=== PATIENT | female | born 1980 | race Caucasian/White ===

== ENCOUNTER 2017-02-27 10:19 | Day surgery (SDC) | payer OTHER ==
[~2017-02-27] VITALS: Ht 165.1 cm; Wt 72.8 kg
[~2017-02-27 10:19] MED LIST: 00186-0370-20 IH; ABILIFY2 MG PO; ALBUTEROL0.83 MG/ML IH; BUSPIRONE HCL15 MG PO; BUSPIRONE15 MG PO; CARAFATE 1GM1 G PO; CELEXA; CELEXA 20MG20 MG/TA1 PO; CEPACOL SORE TH1 LO8; CITALOPRAM20 MG PO; EPIPEN 2-PAK1 MG/ML IM; KLONOPIN 0.5MG0.5 MG PO; LORTAB 7.5/5001 TAB PO; MELATONIN PO; MELATONIN5 MG; MOTRIN800 MG PO; NORCO 325 MG-51 TAB PO; PEPCID 20MG TAB20 MG PO; PERCOCET 325 MG1 TA2 PO; PHENERGAN 25 TA25 MG PO; PREDNISONE20 MG PO; PROZAC 20MG20 MG PO; PROZAC40 MG PO; REGLAN 10MG10 MG/TAB PO; REQUIP1 MG PO; TYLENOL EXTRA500 M1 PO; VICODIN 5/5001 UDTAB PO; WELLBUTRIN 100100 MG; WELLBUTRIN SR150 M1 PO; XANAX0.25 MG PO; ZITHROMAX Z PA250 MG PO; ZOFRAN 4MG T4 MG/TAB PO
[2017-02-27 10:57] VITALS: BP 124/98; PULSE 92; TEMP 98.7
[2017-02-27] MEDS ORDERED: NEXIUM 20MG20 MG PO (11:09)
[2017-02-27] MEDS ORDERED: BUSPAR10 MG PO (11:11)
[2017-02-27] MEDS ORDERED: ORTHO TRI-CYCLE1 TAB PO (11:11)
[2017-02-27 12:02] VITALS: BP 123/94; PULSE 88; TEMP 97.4
[2017-02-27 12:15] VITALS: BP 129/96; PULSE 96
[2017-02-27 13:31] VITALS: BP 122/71; PULSE 87
== END 2017-02-27 13:05 | disposition home or self-care (01) ==
LOC: SDCO 10:19
DX: K62.1 Rectal polyp (principal); K59.00 Constipation, unspecified; K58.9 Irritable bowel syndrome, unspecified; K21.0 Gastro-esophageal reflux disease with esophagitis; F41.9 Anxiety disorder, unspecified; F32.9 Major depressive disorder, single episode, unspecified; F17.210 Nicotine dependence, cigarettes, uncomplicated; Z90.49 Acquired absence of other specified parts of digestive tract
CPT/HCPCS: OP; J2250; J2405; J3010

== ENCOUNTER 2017-05-25 12:31 | Emergency (ER) | payer OTHER ==
[~2017-05-25] VITALS: Ht 165.1 cm; Wt 70.0 kg
[~2017-05-25 12:31] MED LIST changes: +BUSPAR10 MG PO; +NEXIUM 20MG20 MG PO; +ORTHO TRI-CYCLE1 TAB PO
[2017-05-25 12:33] VITALS: BP 171/91; TEMP 97.4
[2017-05-25] MEDS ORDERED: MONONESSA 35 MC1 TA1 PO (14:13)
[2017-05-25] MEDS ORDERED: NORCO 325 MG-51 TAB PO (14:24)
[2017-05-25 14:29] VITALS: PULSE 85
== END 2017-05-25 14:29 | disposition home or self-care (01) ==
LOC: COL.ER 12:31
DX: S20.211A Contusion of right front wall of thorax, initial encounter (principal); F41.9 Anxiety disorder, unspecified; K58.9 Irritable bowel syndrome, unspecified; F17.210 Nicotine dependence, cigarettes, uncomplicated; W00.0XXA Fall on same level due to ice and snow, initial encounter
CPT/HCPCS: A9284

== ENCOUNTER 2017-05-27 17:24 | Outpatient (CLI) | payer OTHER ==
[~2017-05-27] VITALS: Ht 165.1 cm; Wt 70.4 kg
[~2017-05-27 17:24] MED LIST changes: +MONONESSA 35 MC1 TA1 PO
== END 2017-05-27 18:14 | disposition home or self-care (01) ==
LOC: EUO 17:24
DX: R35.0 Frequency of micturition (principal)

== ENCOUNTER 2018-10-11 16:29 | Emergency (ER) | payer OTHER ==
[~2018-10-11] VITALS: Ht 165.1 cm; Wt 79.5 kg
[2018-10-11 16:52] VITALS: BP 122/85; TEMP 97.8
[2018-10-11] MEDS ORDERED: PREDNISONE20 MG PO (17:21)
[2018-10-11] MEDS ORDERED: DOXYCYCLINE 10100 MG PO (17:21)
[2018-10-11 17:30] VITALS: PULSE 83
== END 2018-10-11 17:35 | disposition home or self-care (01) ==
LOC: COL.ER 16:29
DX: S60.562A Insect bite (nonvenomous) of left hand, initial encounter (principal); I10 Essential (primary) hypertension; F32.9 Major depressive disorder, single episode, unspecified; F41.9 Anxiety disorder, unspecified; Z90.89 Acquired absence of other organs; W57.XXXA Bitten or stung by nonvenomous insect and other nonvenomous arthropods, initial encounter
CPT/HCPCS: J7512

== ENCOUNTER 2020-02-02 03:57 | Inpatient (IN) | payer OTHER ==
[~2020-02-02] VITALS: Ht 165.1 cm; Wt 73.2 kg
[2020-02-02] VITALS (11 sets, daily range): BP systolic 82–117; BP diastolic 53–69; PULSE 71–111; TEMP 97.5–99.4
[~2020-02-02 03:57] MED LIST changes: +DOXYCYCLINE 10100 MG PO
[2020-02-02 04:43] LABS: COLLECTION METHOD CLEAN CATCH
[2020-02-02 04:52] LABS: PH 7 (5-8); SQUAMOUS EPITHELIAL 0-2 /hpf; URINE APPEARANCE Clear; URINE BACTERIA None Seen /hpf; URINE BILIRUBIN Negative (NEGATIVE); URINE BLOOD Negative (NEGATIVE); URINE COLOR Yellow; URINE GLUCOSE Negative (NEGATIVE); URINE KETONE Negative (NEGATIVE); URINE LEUKOCYTE ESTERASE Negative (NEGATIVE); URINE NITRATE Negative (NEGATIVE); URINE PROTEIN(semi-quant) Negative (NEGATIVE); URINE RBC None Seen /hpf; URINE UROBILINOGEN Negative (NEGATIVE)
[2020-02-02 04:54] LABS: BASO % 0.3 % (0.0-2.0); EOS # 0.1 (0.0-0.7); EOS % 0.9 % (0-4.0); GRAN # 9.8 (1.4-6.5); GRAN % 83.4 % (42.2-75.2); HEMOGLOBIN 14.3 g/dl (12.5-16.0); LYMPH # 1.1 (1.2-3.4); LYMPH % 9.4 % (20.0-51.0); MEAN CELL VOLUME 94 fl (80.0-100.0); MEAN CORPUSCULAR HEMOGLOBIN 33 pg (27.0-31.0); MEAN CORPUSCULAR HGB CONC 35 g/dl (33.0-37.0); MEAN PLATELET VOLUME 10.4 fl (7.4-10.4); MONO # 0.7 (0.1-0.6); MONO % 5.7 % (1.7-9.3); PLATELET COUNT 243 K/mm3 (130-400); RED BLOOD COUNT 4.35 M/mm3 (4.10-5.30)
[2020-02-02 05:04] LABS: ALBUMIN 4.3 gm/dL (3.5-5.0); BILIRUBIN,TOTAL 0.8 mg/dL (0.0-1.0); C-REACTIVE PROTEIN 4.5 mg/dL (0.0-0.9); CREATININE, serum 0.79 (0.52-1.25); POTASSIUM 3.8 mmol/L (3.4-5.0); TOTAL PROTEIN 7.1 gm/dL (6.4-8.2)
[2020-02-02] MEDS ORDERED: REXULTI2 MG PO (09:01)
[2020-02-02] MEDS ORDERED: AMITRIPTYLINE H25 M1 PO (09:02)
[2020-02-02] MEDS ORDERED: NEURONTIN300 MG/CAP PO (09:03)
[2020-02-02] MEDS ORDERED: TOPROL XL 25MG25 MG PO (09:03)
--- NOTE | 2020-02-02 09:29 | NUR ---
PT ADMITTED FOR SEVERE ABDOMINAL PAIN WHICH GOT WORSE LAST NIGHT AROUND 6PM, HAD BEEN HAVING PAIN SINCE Thursday01/31/2020. PT HAD HYSTERECTOMY ON 01/13/20. BROUGHT TO UNIT FROM ER WHERE SHE HAD LAB WORK, VIVEROS CATHETER PLACED, IV PLACED IN RIGHT AC, ANTIBIOTICS, FLUIDS, AND IV PAIN MEDS WERE ADMINISTERED.BROUGHT TO ROOM 222 BY ER STAFF. PT STRUGGLED TO SLIDE OFF GURNEY TO BED SHE REPORTS MOVEMENT MAKES THE PAIN MUCH WORSE. ALSO LIKES TO LIE FLAT THIS HELPS PAIN NOT BE BAD. DR MALIN IN TO TALK WITH PT AND ABOUT PLAN OF CARE. LR STARTED AT 125ML/HR PER ORDER. ASSESSMENT COMPLETED. PHONED RAMONE IN PACU AT 0856 NOTIFYING HER PT HAS LATEX ALLERGY. PT REPORTING PAIN OF 10/10 AT 0905. 0.25MG DILAUDID GIVEN AT 0910 0930-RATING PAIN 4/10
--- NOTE | 2020-02-02 10:05 | NUR ---
REPORT CALLED TO ANGÉLICA FANG RN, IN OPERATING ROOM
--- NOTE | 2020-02-02 19:00 | NUR ---
CHANGE OF SHIFT REPORT RECEIVED FROM DAY SHIFT NURSE. PATIENT RESTING IN BED WITH NO C/O OR CONCERNS REPORTED DURING REPORT. IVF INFUSING WITH NO PROBLEMS OR CONCERNS.
--- NOTE | 2020-02-02 20:00 | NUR ---
IVF INFUSING WITH NO PROBLEMS, DENIES NAUSEA, CHEST PAIN, SHORTNESS OF BREATH AT THIS TIME. VIVEROS IN PLACE, DRAINING WITH NO PROBLEMS. DENIES ANY NEEDS AT THIS TIME, REFUSING OFFER OF PAIN MEDS AT THIS TIME. TOLERATING PO LIQUIDS WITH NO C/O AT THIS TIME.
[2020-02-03] VITALS (8 sets, daily range): BP systolic 83–116; BP diastolic 46–79; PULSE 63–83; TEMP 97.7–98.3
[2020-02-03 07:04] LABS: MEAN CELL VOLUME 97 fl (80.0-100.0); MEAN CORPUSCULAR HGB CONC 34 g/dl (33.0-37.0); MEAN PLATELET VOLUME 10.4 fl (7.4-10.4); PLATELET COUNT 186 K/mm3 (130-400); RED BLOOD COUNT 3.58 M/mm3 (4.10-5.30); REDCELL DISTRIBUTION WIDTH-CV 12.2 % (11.5-14.5)
[2020-02-03 07:12] LABS: HEMATOCRIT 34.8 % (37.0-47.0); HEMOGLOBIN 11.8 g/dl (12.5-16.0); MEAN CORPUSCULAR HEMOGLOBIN 33 pg (27.0-31.0)
--- NOTE | 2020-02-03 07:15 | NUR ---
CHANGE OF SHIFT REPORT GIVEN TO DAY SHIFT NURSEALFREDO.
[2020-02-03 07:17] LABS: CALCIUM 8.1 mg/dL (8.4-10.2); CREATININE, serum 0.71 (0.52-1.25); MAGNESIUM 1.9 mg/dL (1.6-2.3); PHOSPHOROUS 3.2 mg/dL (2.5-4.5); POTASSIUM 3.9 mmol/L (3.4-5.0)
--- NOTE | 2020-02-03 15:15 | NUR ---
Construction Management Instructor met with patient to discuss discharge planning. Patient lives outside of [place] with her , Cj (ph#[phone]) and sees Dr. Haile for primary care. Patient obtains medications from [facility] with no difficulties. Patient states she works at [employer] but is concerned about her job as she has missed a significant amount of work due to medical issues. Patient does not use any DME and reports independence with ADLS. Patient does not have Advance Directives and is not interested in completing DPOA-HC form at this time. Patient states she plans to return home upon discharge. SW followed up with patient's , Cj later in the afternoon as he is now at bedside. Cj reports no concerns with patient returning home upon discharge. Cj does state that he does not want patient to be discharged too soon even though patient is eager to get home. ANNETTE will continue to follow as needed.
--- NOTE | 2020-02-03 15:50 | NUR ---
Patient resting in bed at this time. Patient is alert and oriented, answers questions appropriately. Vasquez discontinued per order. Catheter tip intact upon removal, patient tolerated procedure well. SUE drain to right abdomen intact, scant amount of bloody drainage in bulb. Patient has had some c/o pain today, reports it is controlled with ice pack and PO PRN pain medications. Patient tolerating full liquid diet well, no complaints of nausea. Patient denies further needs at this time, call light within reach.
--- NOTE | 2020-02-03 17:31 | NUR ---
1700 SITS UP IN BED EATING TOMATOE SOUP, TOLERATE WELL. RATES PAIN 8 OUT OF 10
--- NOTE | 2020-02-03 18:44 | NUR ---
1730 BS HYPOACTIVE, ABD SLIGHTLY DISTENTEDBUT SOFT. INC SITES BRUISED
[2020-02-04 02:30] VITALS: BP 119/73; PULSE 66; TEMP 97.9
[2020-02-04 07:00] VITALS: BP 114/68; PULSE 76; TEMP 98.8
[2020-02-04 08:08] LABS: HEMOGLOBIN 10.9 g/dl (12.5-16.0); MEAN CELL VOLUME 97 fl (80.0-100.0); MEAN CORPUSCULAR HEMOGLOBIN 32 pg (27.0-31.0); MEAN CORPUSCULAR HGB CONC 33 g/dl (33.0-37.0); MEAN PLATELET VOLUME 10.8 fl (7.4-10.4); PLATELET COUNT 211 K/mm3 (130-400); RED BLOOD COUNT 3.38 M/mm3 (4.10-5.30); REDCELL DISTRIBUTION WIDTH-CV 12.7 % (11.5-14.5)
[2020-02-04 08:10] LABS: HEMATOCRIT 32.8 % (37.0-47.0)
[2020-02-04 08:22] LABS: CALCIUM 8.2 mg/dL (8.4-10.2); CREATININE, serum 0.78 (0.52-1.25); POTASSIUM 3.3 mmol/L (3.4-5.0)
[2020-02-04 12:00] VITALS: BP 106/74; PULSE 76; TEMP 98.1
[2020-02-04 17:32] VITALS: BP 114/68; PULSE 64; TEMP 98.2
[2020-02-04 19:00] VITALS: BP 115/72; PULSE 88; TEMP 98.1
--- NOTE | 2020-02-04 23:40 | NUR ---
pt reports nausea and heartburn. Requests and receives Zofran 4 mg IV
[2020-02-05 07:13] VITALS: BP 118/76; PULSE 82; TEMP 98.1
[2020-02-05 08:38] LABS: BASO % 0.4 % (0.0-2.0); EOS # 0.7 (0.0-0.7); EOS % 6.8 % (0-4.0); GRAN # 6.3 (1.4-6.5); GRAN % 66.1 % (42.2-75.2); HEMOGLOBIN 11.5 g/dl (12.5-16.0); LYMPH # 1.7 (1.2-3.4); LYMPH % 18.1 % (20.0-51.0); MEAN CELL VOLUME 100 fl (80.0-100.0); MEAN CORPUSCULAR HEMOGLOBIN 33 pg (27.0-31.0); MEAN CORPUSCULAR HGB CONC 33 g/dl (33.0-37.0); MEAN PLATELET VOLUME 10.4 fl (7.4-10.4); MONO # 0.8 (0.1-0.6); MONO % 8.1 % (1.7-9.3); PLATELET COUNT 257 K/mm3 (130-400); RED BLOOD COUNT 3.46 M/mm3 (4.10-5.30); REDCELL DISTRIBUTION WIDTH-CV 13.1 % (11.5-14.5)
[2020-02-05 08:42] LABS: HEMATOCRIT 34.7 % (37.0-47.0)
[2020-02-05 08:50] LABS: ALBUMIN 3.3 gm/dL (3.5-5.0); BILIRUBIN,TOTAL 0.6 mg/dL (0.0-1.0); CALCIUM 8.1 mg/dL (8.4-10.2); CREATININE, serum 0.87 (0.52-1.25); POTASSIUM 4.1 mmol/L (3.4-5.0); TOTAL PROTEIN 6.1 gm/dL (6.4-8.2)
--- NOTE | 2020-02-05 11:49 | NUR ---
[address] ORDER AND SUE DRAIN DRESSING REDRESSED AT THIS TIME. PATIENT TOLERATES WELL
[2020-02-05 20:24] VITALS: BP 120/88; PULSE 86; TEMP 100.6
[2020-02-05 21:30] VITALS: TEMP 98.4
[2020-02-06 00:47] VITALS: BP 121/74; PULSE 79; TEMP 99.1
[2020-02-06 04:26] VITALS: BP 131/77; PULSE 81; TEMP 98.4
--- NOTE | 2020-02-06 06:40 | NUR ---
0640- SUE dressing changed using clean technique, mostly serous drainage noted on old dressing and in tube of drain. Pt tolerated well.
[2020-02-06 08:25] VITALS: BP 114/71; PULSE 97; TEMP 98.3
[2020-02-06 12:00] VITALS: BP 119/75; PULSE 82; TEMP 98.5
[2020-02-06] MEDS ORDERED: AMOXICILLIN 8751 TAB PO (12:28)
[2020-02-06] MEDS ORDERED: MIRALAX PA17 GM/Dose PO (12:29)
--- NOTE | 2020-02-06 13:45 | NUR ---
1335- Discharge paperwork given and explained. Questions answered. INT out without difficutly. 1345- Pt escorted off unit in wheelchair with in stable condition.
== END 2020-02-06 13:45 | disposition home or self-care (01) | DRG 331 ==
LOC: COL.ER 03:57 → OB 06:36 → SURG 15:55 → OB 02-03 16:16
PROVIDERS: Emergency Medicine; Surgery; ADMIT Obstetrics & Gynecology
PROC: 0DQN4ZZ Repair Sigmoid Colon, Percutaneous Endoscopic Approach (ICD-10-PCS; principal; 2020-02-02 10:30)
PROC: 0DNW4ZZ Release Peritoneum, Percutaneous Endoscopic Approach (ICD-10-PCS; 2020-02-02 10:30)
DX: K63.1 Perforation of intestine (nontraumatic) (principal); K21.9 Gastro-esophageal reflux disease without esophagitis; F41.9 Anxiety disorder, unspecified; I10 Essential (primary) hypertension; M79.7 Fibromyalgia; E87.6 Hypokalemia; Z90.49 Acquired absence of other specified parts of digestive tract; Z90.710 Acquired absence of both cervix and uterus
CPT/HCPCS: A9284; J1100; J1170; J1885; J2405; J2543; J2550; J2704; J2710; J3010; J7030; J7120; Q9967